=== PATIENT | male | born 1985 | race Caucasian/White ===

== ENCOUNTER 2021-03-15 17:48 | Emergency (ER) | payer MEDICAID ==
[~2021-03-15] VITALS: Ht 167.6 cm; Wt 56.0 kg
[2021-03-15] MEDS ORDERED: MIDAZolam 5mg/ml 2ml vial IV ONE (19:55)
[2021-03-15] MEDS ORDERED: fentaNYL/PF 50MCG/1 ML 2ML syringe IV ONE (19:55)
[2021-03-15] MEDS ORDERED: ondansetron/PF 4mg/2ml inj IV ONE (20:15)
[2021-03-15] MEDS ORDERED: BUPIVAcaine/PF 7.5 mg/ml (0.75%) 30ml vial IJ ONE (20:20)
--- NOTE | 2021-03-15 20:25 | NUR ---
Patient moved from ED bed 9 to ED bed 1. No moderate sedation. Pain control and muscle relaxation from fentanyl and midazolam. Pt given 25mcg of fentanyl and 2.5 mg of midazolam pre procedure.
[2021-03-15] MEDS ORDERED: BUPIVAcaine 0.5% inj/PF 30 ml vial IJ ONE (20:30)
--- NOTE | 2021-03-15 20:58 | NUR ---
Pt hand reduced by PA, placement confirmed by X-ray. Splint applied by orthodontic lab technician. Pt states pain under control, denies nausea. VSS
[2021-03-15] MEDS ORDERED: HYDROcodone/acetaminophen 10/325mg tab PO ONE (21:25)
[2021-03-15] MEDS ORDERED: HYDR-3965 PO (21:26)
[2021-03-15 21:37] VITALS: BP 113/83
== END 2021-03-15 21:38 | disposition home or self-care (01) ==
LOC: ER 17:50
DX: S62.392A Other fracture of third metacarpal bone, right hand, initial encounter for closed fracture (principal); S62.394A Other fracture of fourth metacarpal bone, right hand, initial encounter for closed fracture; S62.396A Other fracture of fifth metacarpal bone, right hand, initial encounter for closed fracture; Z79.899 Other long term (current) drug therapy; W22.01XA Walked into wall, initial encounter; Y93.89 Activity, other specified; Y92.89 Other specified places as the place of occurrence of the external cause; Y99.8 Other external cause status
CPT/HCPCS: 26605; 26670; 73130; 96374; 99284; J2250; J2405; J3010

== ENCOUNTER 2024-11-06 18:28 | Emergency (ER) | payer MEDICAID ==
[~2024-11-06] VITALS: Ht 162.6 cm; Wt 58.9 kg
[2024-11-06 19:30] LABS: BASOPHILS # (AUTO) 0.1 X10'3 (0-0.2); BASOPHILS % (AUTO) 0.4 % (0-1); EOSINOPHILS % (AUTO) 0 % (0-6); HEMATOCRIT 45.5 % (42.0-52.0); HEMOGLOBIN 15.5 g/dl (14.0-17.9); LYMPHOCYTES # (AUTO) 2.1 X10'3 (1.1-4.8); LYMPHOCYTES % (AUTO) 11.8 % (21-51); MEAN CORPUSCULAR HEMOGLOBIN 33.2 PG (27.0-31.0); MEAN CORPUSCULAR VOLUME 97.6 FL (78-98); MEAN PLATELET VOLUME 9.1 FL (7.4-10.4); MONOCYTES # (AUTO) 0.9 X10'3 (0-0.9); MONOCYTES % (AUTO) 4.9 % (2-12); NEUTROPHILS # (AUTO) 14.7 X10'3 (1.8-7.7); NEUTROPHILS % (AUTO) 82.9 % (42-75); PLATELET COUNT 268 X10'3 (140-440); RED BLOOD COUNT 4.66 X10'6 (4.70-6.10); RED CELL DISTRIBUTION WIDTH 12.6 % (11.5-14.5); WHITE BLOOD COUNT 17.8 X10'3 (4.5-11.0)
[2024-11-06 19:49] LABS: ALANINE AMINOTRANSFERASE 21 U/L (12-78); ALBUMIN 4.7 G/DL (3.4-5.0); ALBUMIN/GLOBULIN RATIO 1.4 (1.1-1.5); ALKALINE PHOSPHATASE 69 IU/L (46-116); ANION GAP 14 (8-16); ASPARTATE AMINO TRANSFERASE 17 U/L (10-37); BILIRUBIN,TOTAL 0.8 MG/DL (0.1-1.0); BLOOD UREA NITROGEN 13 MG/DL (7-18); BUN/CREATININE RATIO 13.4 (10.0-20.0); CALCIUM 9.5 MG/DL (8.5-10.1); CHLORIDE 103 MMOL/L (99-107); CREATININE 0.97 MG/DL (0.60-1.10); GLUCOSE 159 MG/DL (70-104); LIPASE 17 U/L (16-77); POTASSIUM 3.4 MMOL/L (3.5-5.1); SODIUM 140 MMOL/L (135-145); TOTAL CARBON DIOXIDE 22.9 MMOL/L (24-32); TOTAL PROTEIN 8.1 G/DL (6.4-8.2); eCRCL 83 ML/MIN; eGFR 85 ML/MIN
[2024-11-06 20:23] LABS: BILIRUBIN,URINE NEGATIVE (Neg); CLARITY,URINE CLEAR (Clear); COLOR,URINE YELLOW (Yellow); GLUCOSE, URINE NEGATIVE (Neg); KETONES,URINE 40 mg/dl (Neg); LEUKOCYTE ESTERASE ,URINE NEGATIVE (Neg); NITRITES, URINE NEGATIVE (Neg); OCCULT BLOOD,URINE NEGATIVE (Neg); PH,URINE 8.5 (4.8-8.0); PROTEIN,URINE 30 mg/dl (Neg)
[2024-11-06 20:37] LABS: UA COLLECTION TYPE CLN CATCH MIDSTREAM
[2024-11-06 20:39] LABS: BACTERIA,URINE FEW /HPF (Neg); MUCUS STRANDS FEW /LPF (Neg); RBC,URINE NONE SEEN /HPF (0-2); SQUAMOUS EPITHELIAL CELL,UR FEW /LPF (FEW); WBC,URINE 0-4 /HPF (0-4)
[2024-11-06] MEDS: normal saline 1000ML IV soln IVB ONE (21:26)
[2024-11-06] MEDS: ondansetron/PF 4mg/2ml inj IM ONE (21:26)
[2024-11-06] MEDS: ketorolac trometh 15mg/ml vial 15 MG/ML ML IV ONE (21:47)
[2024-11-06] MEDS: ondansetron/PF 4mg/2ml inj IV ONE (21:48)
[2024-11-06] MEDS: proCHLORperazine 10 MG/2 ml inj IV ONE (21:48)
[2024-11-06] MEDS ORDERED: ONDA-245 PO (22:49)
[2024-11-06 23:12] VITALS: BP 116/64; PULSE 97; RESP 16; TEMP 98.4; O2SAT 97
== END 2024-11-06 23:17 | disposition home or self-care (01) ==
LOC: ER 18:29
DX: F12.10 Cannabis abuse, uncomplicated (principal); R11.10 Vomiting, unspecified; R10.9 Unspecified abdominal pain; R19.7 Diarrhea, unspecified
CPT/HCPCS: 36415; 80053; 81001; 83690; 84145; 85025; 96361; 96372; 96374; 96375; 99284; J0780; J1885; J2405; J7030